=== PATIENT | female | born 1950 | race Caucasian/White ===

== ENCOUNTER 2021-11-02 00:49 | Emergency (ER) | payer MEDICARE, OTHER ==
[2021-11-02 01:57] LABS: HEMOGLOBIN 14.2 gm/dl (12.3-15.3); RED BLOOD COUNT 4.79 M/UL (4.00-5.10); WHITE BLOOD COUNT 5.9 K/UL (4.5-11.0)
[2021-11-02 02:13] LABS: BUN/CREATININE RATIO 25 (0-10)
== END 2021-11-02 06:05 | disposition home or self-care (01) ==
LOC: ER1 00:49
PROVIDERS: Emergency Medicine
DX: R14.0 Abdominal distension (gaseous) (principal); M25.511 Pain in right shoulder
CPT/HCPCS: 80053; 81001; 83690; 85025; 99284